=== PATIENT | male | born 1990 | race Caucasian/White ===

== ENCOUNTER 2021-03-24 11:47 | Observation (INO) | payer OTHER ==
[~2021-03-24] VITALS: Ht 180.3 cm; Wt 129.3 kg
[~2021-03-24 11:47] MED LIST: ASPIRIN EC81 MG PO; ATORVASTATIN CA20 MG PO; LISINOPRIL10 MG PO; LOPRESSOR 25 MG25 MG PO
[2021-03-24 12:34] LABS: HEMOGLOBIN 18.4 gm/dl (14.0-17.5); RED BLOOD COUNT 5.95 M/UL (4.20-5.50); WHITE BLOOD COUNT 13.4 K/UL (4.5-11.0)
[2021-03-24 12:57] LABS: BUN/CREATININE RATIO 12 (0-10)
[2021-03-25 08:59] LABS: HEMOGLOBIN 16.6 gm/dl (14.0-17.5); RED BLOOD COUNT 5.42 M/UL (4.20-5.50); WHITE BLOOD COUNT 14.1 K/UL (4.5-11.0)
[2021-03-25] MEDS ORDERED: ASPIRIN EC81 MG PO ×2 (11:32→14:35)
[2021-03-25] MEDS ORDERED: NITROGLYCERIN0.4 MG SL (11:32)
== END 2021-03-25 15:15 | disposition home or self-care (01) ==
LOC: ER1 11:47 → PROG CARE 13:53 → CDU 13:53 → PROG CARE 17:29
PROVIDERS: Emergency Medicine; ADMIT Internal Medicine
DX: R77.8 Other specified abnormalities of plasma proteins (principal); D75.1 Secondary polycythemia; F17.210 Nicotine dependence, cigarettes, uncomplicated; R07.9 Chest pain, unspecified; R74.8 Abnormal levels of other serum enzymes; R94.5 Abnormal results of liver function studies; Z98.61 Coronary angioplasty status; Z20.822 Contact with and (suspected) exposure to COVID-19
CPT/HCPCS: 36415; 71045; 80053; 80061; 82550; 82553; 83036; 83735; 83874; 83880; 84484; 85025; 85730; 93005; 96374; 96375; 99285; G0378; J1644; J2405; J7030; U0002

== ENCOUNTER 2021-10-13 12:35 | Inpatient (IN) | payer MEDICAID ==
[~2021-10-13] VITALS: Ht 180.3 cm; Wt 130.0 kg
[~2021-10-13 12:35] MED LIST changes: +NITROGLYCERIN0.4 MG SL
[2021-10-13 12:58] LABS: HEMOGLOBIN 18.2 gm/dl (14.0-17.5); RED BLOOD COUNT 5.97 M/UL (4.20-5.50); WHITE BLOOD COUNT 12.1 K/UL (4.5-11.0)
[2021-10-13 13:20] LABS: BUN/CREATININE RATIO 12 (0-10)
--- NOTE | 2021-10-13 17:39 | NUR ---
1615:GROIN SITE SOFT AND HAS GOOD PULSE. ANGIOSEAL CLEAN AND DRY ALL NEURO CHECKS NORMAL 1630: GROIN SITE SOFT AND HAS GOOD PULSE. ANGIOSEAL CLEAN AND DRY. ALL NEURO CHECKS NORMAL 1645: GROIN SITE SOFT AND HAS GOOD PULSE. ANGIOSEAL CLEAN AND DRY. ALL NEURO CHECKS NORMAL 1700: GROIN SITE SOFT AND HAS GOOD PULSE. ANGIOSEAL CLEAN AND DRY. ALL NEURO CHECKS WNL 1730: GROIN SITE WNL. ANGIOSEAL CLEAN AND DRY. ALL NEURO CHECKS WNL.
[2021-10-13 22:28] LABS: HEMOGLOBIN 15.9 gm/dl (14.0-17.5); RED BLOOD COUNT 5.31 M/UL (4.20-5.50); WHITE BLOOD COUNT 15.3 K/UL (4.5-11.0)
[2021-10-13 22:50] LABS: BUN/CREATININE RATIO 13 (0-10)
[2021-10-14 05:05] LABS: RED BLOOD COUNT 5.66 M/UL (4.20-5.50); WHITE BLOOD COUNT 16.6 K/UL (4.5-11.0)
[2021-10-14 05:32] LABS: BUN/CREATININE RATIO 13 (0-10)
--- NOTE | 2021-10-14 13:33 | NUR ---
REPORT CALLED TO JOSE ON [facility] 5
[2021-10-15] MEDS ORDERED: BRILINTA 90 MG90 MG PO (15:22)
[2021-10-15] MEDS ORDERED: AMLODIPINE BESY10 MG PO (15:22)
[2021-10-15] MEDS ORDERED: HYDROCHLOROTHIA25 MG PO (15:22)
[2021-10-15] MEDS ORDERED: ASPIRIN EC81 MG PO (15:22)
[2021-10-15] MEDS ORDERED: ATORVASTATIN CA80 MG PO (15:22)
[2021-10-15] MEDS ORDERED: NITROGLYCERIN0.4 MG SL (15:22)
[2021-10-15] MEDS ORDERED: CARVEDILOL3.125 MG PO (15:22)
== END 2021-10-15 16:16 | disposition home or self-care (01) | DRG 247 ==
LOC: ER1 12:35 → M/S 12:55 → CDU 12:55 → CCU 16:52 → M/S 10-14 13:37
PROVIDERS: Family Medicine; ADMIT Internal Medicine Cardiovascular Disease
PROC: 027034Z Dilation of Coronary Artery, One Artery with Drug-eluting Intraluminal Device, Percutaneous Approach (ICD-10-PCS; principal; 2021-10-13)
PROC: 02C03ZZ Extirpation of Matter from Coronary Artery, One Artery, Percutaneous Approach (ICD-10-PCS; 2021-10-13)
PROC: B241ZZ3 Ultrasonography of Multiple Coronary Arteries, Intravascular (ICD-10-PCS; 2021-10-13)
PROC: B2111ZZ Fluoroscopy of Multiple Coronary Arteries using Low Osmolar Contrast (ICD-10-PCS; 2021-10-13)
PROC: B24BZZZ Ultrasonography of Heart with Aorta (ICD-10-PCS; 2021-10-14)
DX: I21.09 ST elevation (STEMI) myocardial infarction involving other coronary artery of anterior wall (principal); Z20.822 Contact with and (suspected) exposure to COVID-19; F17.210 Nicotine dependence, cigarettes, uncomplicated; I25.10 Atherosclerotic heart disease of native coronary artery without angina pectoris; I10 Essential (primary) hypertension; E78.5 Hyperlipidemia, unspecified; Z79.82 Long term (current) use of aspirin; Z88.8 Allergy status to other drugs, medicaments and biological substances; Z82.49 Family history of ischemic heart disease and other diseases of the circulatory system; Z88.0 Allergy status to penicillin
CPT/HCPCS: ECHO; 36415; 71045; 80048; 80053; 80061; 82550; 82553; 83036; 83874; 84484; 85025; 85027; 85347; 85610; 85730; 92978; 93005; 93306; 99152; 99153; 99285; C1725; C1753; C1757; C1760; C1769; C1874; C1887; C1894; C9600; J0461; J1644; J1650; J2250; J2270; J2370; J2405; J3010; J3246; J7030; J7040; Q9965; U0002

== ENCOUNTER 2021-11-21 16:08 | Inpatient (IN) | payer SELFPAY ==
[~2021-11-21] VITALS: Ht 180.3 cm; Wt 136.1 kg
[~2021-11-21 16:08] MED LIST changes: +AMLODIPINE BESY10 MG PO; +ATORVASTATIN CA80 MG PO; +BRILINTA 90 MG90 MG PO; +CARVEDILOL3.125 MG PO; +HYDROCHLOROTHIA25 MG PO
[2021-11-21] MEDS ORDERED: CLOPIDOGREL75 MG PO (17:02)
[2021-11-22 05:10] LABS: RED BLOOD COUNT 4.99 M/UL (4.20-5.50); WHITE BLOOD COUNT 14.6 K/UL (4.5-11.0)
[2021-11-22 05:47] LABS: BUN/CREATININE RATIO 13 (0-10)
[2021-11-23] MEDS ORDERED: BRILINTA90 MG PO (14:21)
== END 2021-11-23 14:36 | disposition home or self-care (01) | DRG 247 ==
LOC: CDU 16:43 → CCU 19:00 → PROG CARE 11-22 14:44
PROVIDERS: ADMIT Internal Medicine Interventional Cardiology
PROC: 4A023N7 Measurement of Cardiac Sampling and Pressure, Left Heart, Percutaneous Approach (ICD-10-PCS; principal; 2021-11-21)
PROC: 027034Z Dilation of Coronary Artery, One Artery with Drug-eluting Intraluminal Device, Percutaneous Approach (ICD-10-PCS; 2021-11-21)
PROC: 02C03ZZ Extirpation of Matter from Coronary Artery, One Artery, Percutaneous Approach (ICD-10-PCS; 2021-11-21)
PROC: B2111ZZ Fluoroscopy of Multiple Coronary Arteries using Low Osmolar Contrast (ICD-10-PCS; 2021-11-21)
PROC: B24BZZZ Ultrasonography of Heart with Aorta (ICD-10-PCS; 2021-11-21)
DX: I21.09 ST elevation (STEMI) myocardial infarction involving other coronary artery of anterior wall (principal); I42.9 Cardiomyopathy, unspecified; Z20.822 Contact with and (suspected) exposure to COVID-19; I25.10 Atherosclerotic heart disease of native coronary artery without angina pectoris; E78.5 Hyperlipidemia, unspecified; I10 Essential (primary) hypertension; F17.200 Nicotine dependence, unspecified, uncomplicated; F15.10 Other stimulant abuse, uncomplicated; Z91.14 Patient's other noncompliance with medication regimen; Z79.82 Long term (current) use of aspirin; Z79.899 Other long term (current) drug therapy; Z82.49 Family history of ischemic heart disease and other diseases of the circulatory system
CPT/HCPCS: ECHO; 36415; 80048; 80061; 82550; 82553; 83036; 84484; 85027; 85347; 92973; 93005; 93306; 99152; 99153; C1725; C1757; C1769; C1874; C1887; J1170; J1644; J2250; J3010; J3246; J7030; J7040; Q9957; Q9965

== ENCOUNTER → 2022-04-24 | Outpatient (CLI) | payer OTHER ==
[~2022-04-24] MED LIST changes: +BRILINTA90 MG PO; +CLOPIDOGREL75 MG PO
== END ==
LOC: KOH-I 09:45
DX: R74.8 Abnormal levels of other serum enzymes (principal); K76.0 Fatty (change of) liver, not elsewhere classified
CPT/HCPCS: 76705